=== PATIENT | male | born 1975 | race Caucasian/White ===

== ENCOUNTER 2021-06-30 19:08 | Emergency (ER) | payer BC ==
[2021-06-30 20:50] LABS: HEMOGLOBIN 15.1 gm/dl (14.0-17.5); RED BLOOD COUNT 4.82 M/UL (4.20-5.50); WHITE BLOOD COUNT 7.1 K/UL (4.5-11.0)
[2021-06-30 21:59] LABS: BUN/CREATININE RATIO 11 (0-10)
== END 2021-07-01 01:25 | disposition home or self-care (01) ==
LOC: ER1 19:08
PROVIDERS: Family Medicine
DX: U07.1 COVID-19 (principal); Z23 Encounter for immunization; F17.200 Nicotine dependence, unspecified, uncomplicated; F17.210 Nicotine dependence, cigarettes, uncomplicated; E66.01 Morbid (severe) obesity due to excess calories
CPT/HCPCS: 36600; 71045; 80053; 82550; 82553; 82803; 83605; 83735; 83874; 83880; 84100; 84484; 85025; 85610; 87040; 93005; 99284; M0245; U0002